=== PATIENT | female | born 1995 | race Caucasian/White ===

== ENCOUNTER 2016-05-29 19:44 | Emergency (ER) | payer OTHER ==
[2016-05-29 19:53] VITALS: BP 122/78
[2016-05-29] MEDS ORDERED: IBUPROFEN 800 MG TABLET PO ONE (19:54)
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
[2016-05-29 20:56] LABS: APPEARANCE,URINE CLEAR; BILIRUBIN,URINE NEGATIVE (NEGATIVE); GLUCOSE, URINE NEGATIVE (NEGATIVE); KETONES,URINE NEGATIVE (NEGATIVE); LEUKOCYTE ESTERASE,URINE NEGATIVE (NEGATIVE); NITRITE,URINE NEGATIVE (NEGATIVE); PROTEIN,URINE NEGATIVE (NEGATIVE); URINE SPECIFIC GRAVITY 1.014; UROBILINOGEN,URINE NEGATIVE mg/dL (<2.0)
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
== END 2016-05-29 22:55 | disposition home or self-care (01) ==
LOC: ER 19:44
DX: R10.32 Left lower quadrant pain (principal); M79.1 Myalgia; V43.62XA Car passenger injured in collision with other type car in traffic accident, initial encounter
CPT/HCPCS: 81001; 81025; 99283